=== PATIENT | female | born 1995 | race African-American/Black ===

== ENCOUNTER 2022-01-02 16:07 | Emergency (ER) | payer MEDICAID ==
[~2022-01-02] VITALS: Ht 172.7 cm; Wt 66.7 kg
[2022-01-02 16:39] VITALS: BP 133/83
== END 2022-01-02 19:09 | disposition left against medical advice (07) ==
LOC: ER 16:20
DX: S61.012A Laceration without foreign body of left thumb without damage to nail, initial encounter (principal); Z53.21 Procedure and treatment not carried out due to patient leaving prior to being seen by health care provider; W26.0XXA Contact with knife, initial encounter; Y93.89 Activity, other specified; Y92.89 Other specified places as the place of occurrence of the external cause; Y99.8 Other external cause status